=== PATIENT | male | born 1990 | race Caucasian/White ===

== ENCOUNTER 2016-09-02 12:33 | Emergency (ER) | payer SELFPAY ==
[~2016-09-02] VITALS: Ht 167.6 cm; Wt 81.1 kg
[2016-09-02 12:37] VITALS: Ht 167.6 cm; Wt 81.1 kg
[2016-09-02] MEDS ORDERED: ONDANSETRON (ODT) 4 MG TAB ODT STA (13:24)
[2016-09-02] MEDS ORDERED: HYDROCODONE/APAP (5/325) TAB PO ONE (13:30)
--- NOTE | 2016-09-02 14:33 | RADRPT ---
PROCEDURE: XR Knee. CLINICAL INDICATION: Knee pain TECHNIQUE: Three views of the right knee are available for review. COMPARISON: None available FINDINGS: The medial and lateral femorotibial compartments are preserved, as is the patellofemoral compartment . There is no acute osseous abnormality, marginal erosion or evidence of fracture. A trace joint ef fusion is seen. IMPRESSION: 1. No acute fracture or dislocation is seen. 2. Trace joint effusion. RPTAT: EE .Antelmo Pineda MD, Date Time Electronically viewed and signed by .Antelmo Pineda MD, MD on 09/02/2016 14:33 .d/
[2016-09-02] MEDS ORDERED: NAPR-260 PO (15:00)
--- NOTE | 2016-09-02 17:48 | ERD ---
ER Documentation Chief Complaint Date/Time DATE: 09/02/16 TIME: 17:45 Chief Complaint right knee pain HPI This patient is a 25-year-old male who presents to the emergency department for trauma to his right knee approximately 3 weeks ago. The patient was skateboarding when he fell and landed directly onto his right knee. There was no twisting motion, crack or pop noted. The patient has been taking ibuprofen at home for pain relief. The patient has been able to ambulate okay without trouble. Patient denies head injury, loss of consciousness, or other injuries. ROS All systems reviewed and are negative except as per history of present illness. Medications Home Meds Active Scripts Naproxen* (Naprosyn*) 500 Mg Tablet, 500 MG PO BID Y for PAIN AND/OR INFLAMMATION, #30 TAB Prov:JONNA HORTA PA-C 09/02/16 Allergies Allergies: Coded Allergies: No Known Allergy (Unverified , 09/02/16) PMhx/Soc Medical and Surgical Hx: pt denies Medical Hx, pt denies Surgical Hx History of Surgery: No Anesthesia Reaction: No Hx Neurological Disorder: No Hx Respiratory Disorders: No Hx Cardiac Disorders: No Hx Psychiatric Problems: No Hx Miscellaneous Medical Probl: No Hx Alcohol Use: Yes (socially) Hx Substance Use: No Hx Tobacco Use: No Smoking Status: Never smoker FmHx Noncontributory for chief complaint Physical Exam Vitals Vital Signs Date Time Temp Pulse Resp B/P Pulse Ox O2 Delivery O2 Flow Rate FiO2 09/02/16 12:37 98.1 74 18 134/70 99 Physical Exam Const: The patient is resting comfortably in no acute distress. Head: Atraumatic Eyes: Normal Conjunctiva ENT: Normal External Ears, Nose and Mouth. Neck: Full range of motion..~ No meningismus. Resp: Clear to auscultation bilaterally Cardio: Regular rate and rhythm, no murmurs Abd: Soft, non tender, non distended. Normal bowel sounds Skin: No petechiae or rashes Back: No midline or flank tenderness Ext: No cyanosis, or edema. The patient has some tenderness palpation to the suprapatellar area on the right lower extremity. There is some associated edema but no ecchymosis. The patient has good range of motion of the right knee. Neur: Awake and alert Psych: Normal Mood and Affect Results 24 hrs Current Medications Medications (Trade) Dose Ordered Sig/Makenna Route PRN Reason Start Time Stop Time Status Last Admin Dose Admin Acetaminophen/ Hydrocodone Bitart ([place] (5/325)) 1 tab ONCE ONCE PO 09/02/16 13:30 09/02/16 13:31 DC 09/02/16 13:46 Ondansetron HCl (Zofran Odt) 4 mg ONCE STAT ODT 09/02/16 13:24 09/02/16 13:25 DC 09/02/16 13:46 Procedures/MDM 25-year-old male presents to the emergency department secondary to right knee pain after trauma approximately 3 weeks ago. Patient has good range of motion in the knee but the patient does have some tenderness palpation supra patellar area on the right lower extremity. There is some associated edema but no ecchymosis or gross deformity. Radiology PROCEDURE: XR Knee. CLINICAL INDICATION: Knee pain TECHNIQUE: Three views of the right knee are available for review. COMPARISON: None available FINDINGS: The medial and lateral femorotibial compartments are preserved, as is the patellofemoral compartment. There is no acute osseous abnormality, marginal erosion or evidence of fracture. A trace joint effusion is seen. IMPRESSION: 1. No acute fracture or dislocation is seen. 2. Trace joint effusion. RPTAT: EE .Antelmo Pineda MD, Date Time Electronically viewed and signed by .Antelmo Pineda MD, on 09/02/2016 14:33 .d/ CC: JONNA HORTA PA-C The patient was given information to follow-up with the [facility] orth[facility]. The patient is also to follow-up with his primary care physician. Patient is stable for outpatient management with a prescription for naproxen. Patient was given Rice therapy instructions. Strict ER return precautions were given the patient and he demonstrates good understanding. I have low suspicion for fracture, septic joint, cellulitis, dislocation, or other emergent conditions. Departure Diagnosis: Primary Impression: Knee pain Additional Impression: Knee contusion Condition: Fair Patient Instructions: Knee Effusion Referrals: [facility] YOU HAVE RECEIVED A MEDICAL SCREENING EXAM AND THE RESULTS INDICATE THAT YOU DO NOT HAVE A CONDITION THAT REQUIRES URGENT TREATMENT IN THE EMERGENCY DEPARTMENT. FURTHER EVALUATION AND TREATMENT OF YOUR CONDITION CAN WAIT UNTIL YOU ARE SEEN IN YOUR DOCTORS OFFICE WITHIN THE NEXT 1-2 DAYS. IT IS YOUR RESPONSIBILITY TO MAKE AN APPOINTMENT FOR FOLOW-UP CARE. IF YOU HAVE A PRIMARY DOCTOR --you should call your primary doctor and schedule an appointment IF YOU DO NOT HAVE A PRIMARY DOCTOR YOU CAN CALL OUR PHYSICIAN REFERRAL HOTLINE AT IF YOU CAN NOT AFFORD TO SEE A PHYSICIAN YOU CAN CHOSE FROM THE FOLLOWING [facility] [address] [facility] [address] [facility] [facility] [address] [facility] [address] [facility] [address] [facility] [facility]. [address] [facility] Hours: Mon-Fri 9:00 AM - 5:00 PM Additional Instructions: Follow up with your PCP within the next 1-3 days for a more thorough evaluation and a possible referral to a specialist. Return the the emergency department immediately if symptoms worsen or change. If you have any questions regarding medications, ask your pharmacist or us before you leave. If any adverse reactions, occur while taking your medications, discontinue the treatment and return to the emergency department immediately. If any new or worsening symptoms, uncontrolled fevers, or other unexplained symptoms occur, return to the emergency department immediately. Take your medications as directed, and complete the entire course of treatment. JONNA HORTA PA-C Sep 02, 2016 17:48
== END 2016-09-02 15:13 | disposition home or self-care (01) ==
LOC: FTE 12:33
DX: S80.01XA Contusion of right knee, initial encounter (principal); V00.131A Fall from skateboard, initial encounter; Y92.9 Unspecified place or not applicable
CPT/HCPCS: 73562